=== PATIENT | male | born 2000 | race Caucasian/White ===

== ENCOUNTER 2019-05-30 23:11 | Emergency (ER) | payer OTHER ==
[~2019-05-30] VITALS: Ht 177.8 cm; Wt 112.0 kg
[2019-05-30 23:14] VITALS: BP 148/92
[2019-05-30] MEDS ORDERED: levETIRAcetam 750 MG in NACL 0.9% 100 ML IV ONE (23:40)
[2019-05-30] MEDS ORDERED: levETIRAcetam 100 MG/ML VIAL IV ONE (23:44)
[2019-05-31 00:58] VITALS: BP 148/92
== END 2019-05-31 00:58 | disposition home or self-care (01) ==
LOC: MED 23:11
DX: S00.512A Abrasion of oral cavity, initial encounter (principal); G40.409 Other generalized epilepsy and epileptic syndromes, not intractable, without status epilepticus; W18.39XA Other fall on same level, initial encounter; Y93.89 Activity, other specified; Y92.89 Other specified places as the place of occurrence of the external cause; Y99.8 Other external cause status; Z91.14 Patient's other noncompliance with medication regimen
CPT/HCPCS: 96365; 99283; J1953